=== PATIENT | female | born 1980 | race African-American/Black ===

== ENCOUNTER → 2016-03-10 | Outpatient (CLI) | payer OTHER ==
[~2016-03-10] MED LIST: ACTOS 45MG45 MG/TAB PO; ACTOS15 MG PO; ANTIVERT 25MG25 MG PO; AVANDIA2 MG PO; CIPRO 500MG TA500 MG PO; DULCOLAX S10 MG/SUPP RC; GLUCOPHAGE XR500 M1 PO; GLUCOPHAGE500 MG/TAB PO; GLUCOTROL10 MG PO; IRON PO; LINZESS145CAP PO; MICROGESTIN 1.51 TAB PO; NORCO 325 MG-51 TAB PO; PERCOCET 325 MG1 TA2 PO; PRILOSEC 20MG20 MG PO; ULTRAM 50MG TAB50 MG PO; VITAMINC500CH PO; ZOFRAN 4MG T4 MG/TAB PO; ZYRTEC 10MG10 MG PO
== END ==
LOC: MC.RAD 14:00
DX: Z12.31 Encounter for screening mammogram for malignant neoplasm of breast (principal)